=== PATIENT | male | born 1945 | race Hispanic/Latino ===

== ENCOUNTER → 2021-12-04 | Day surgery (SDC) | payer MEDICARE, OTHER ==
[2021-12-02 09:41] LABS: BASOPHILS % 0.5 % (0.0-1.0); EOSINOPHILS # (AUTO) 0.3 (0.0-0.4); EOSINOPHILS % 3.5 % (0.0-6.0); HEMATOCRIT 40.2 % (38.2-49.6); HEMOGLOBIN 12.6 g/dL (14.0-18.0); INR 0.95; LYMPHOCYTES # (AUTO) 1.5 (1.0-3.2); LYMPHOCYTES % 19.9 % (18.0-39.1); MEAN CORPUSCULAR HEMOGLOBIN 28.2 pg (28-32); MEAN CORPUSCULAR HGB CONC 31.3 g/dL (31-35); MEAN CORPUSCULAR VOLUME 89.9 fL (81-99); MONOCYTES # (AUTO) 0.6 (0.2-0.8); MONOCYTES % 7.9 % (4.4-11.3); NEUTROPHILS # (AUTO) 5.1 (2.1-6.9); NEUTROPHILS % 67.7 % (38.7-80.0); PLATELET COUNT 239 x10e3/uL (140-360); PROTHROMBIN TIME 13.5 seconds (11.9-14.5); RED BLOOD COUNT 4.47 x10e6/uL (4.3-5.7)
[2021-12-02 09:42] LABS: PARTIAL THROMBOPLASTIN TIME 30.2 seconds (23.8-35.5)
[2021-12-02 09:48] LABS: ALBUMIN 3.5 g/dL (3.5-5.0); ALBUMIN/GLOBULIN RATIO 0.8 (0.8-2.0); ANION GAP 15.2 mmol/L (8-16); CALCIUM 9.3 mg/dL (8.4-10.2); CHOL/HDL RATIO 4.2 (3.9-4.7); CREATININE, SERUM 1.54 mg/dL (0.72-1.25); POTASSIUM 4.2 mmol/L (3.5-5.1)
[2021-12-04] VITALS (19 sets, daily range): BP systolic 116–165; BP diastolic 64–86
[~2021-12-04] VITALS: Ht 165.1 cm; Wt 97.1 kg
[~2021-12-04] MED LIST: ASPIRIN 325 MG TAB ONE; ASPIRIN CHEW81 MG PO; BYSTOLIC10 MG PO; CLOPIDOGREL BISULFATE 75 MG TAB ONE; CLOPIDOGREL75 MG PO; DIOVAN160 MG PO; FENTANYL CITRATE/PF 100MCG/2 ML INJ ONE; GLIMEPIRIDE4 MG; HEPARIN SOD (PORCINE) 1000 UNIT/ML 30ML ONE; HEPARIN SOD/SOD CHLORIDE 2,000 ML ONE; HYDROCHLOROTHIA50 MG; IOPAMIDOL 300MG/ML 100 ML INFUS..BTL IV ONE; LIDOCAINE HCL 1% LOCAL INJ 20 ML VIAL ONE; LUMIGAN2.5 M1 OP; METFORMIN HCL500 M2 PO; MIDAZOLAM HCL 2 MG/2 ML VIAL ONE; NITROGLYCERIN/D5W 200 MCG/ML 250 ML ONE; SIMVASTATIN40 MG PO; SODIUM CHLORIDE 0.9% 1000ML 1,000 ML ONE; VERAPAMIL HCL 2.5 MG/ML 2 ML VIAL ONE
== END | disposition home or self-care (01) ==
LOC: CATH LAB 07:29
PROVIDERS: ATTEND Internal Medicine Cardiovascular Disease
DX: I70.213 Atherosclerosis of native arteries of extremities with intermittent claudication, bilateral legs (principal); I25.119 Atherosclerotic heart disease of native coronary artery with unspecified angina pectoris; I35.0 Nonrheumatic aortic (valve) stenosis; I11.0 Hypertensive heart disease with heart failure; I50.32 Chronic diastolic (congestive) heart failure; E78.2 Mixed hyperlipidemia; R60.0 Localized edema; E11.9 Type 2 diabetes mellitus without complications; Z71.89 Other specified counseling; Z71.3 Dietary counseling and surveillance; Z01.812 Encounter for preprocedural laboratory examination; Z20.822 Contact with and (suspected) exposure to COVID-19; Z79.82 Long term (current) use of aspirin; Z79.84 Long term (current) use of oral hypoglycemic drugs; Z79.899 Other long term (current) drug therapy; Z68.33 Body mass index [BMI] 33.0-33.9, adult
CPT/HCPCS: 36415; 37225; 76937; 80053; 80061; 85025; 85610; 85730; 92978; 93458; C1724; C1725; C1753; C1760; C1769 ×3; C1887; C2623; J1644; J2001; J2250; J3010; J7030; Q9967; U0002; 36247; 37224; 75630; 99152; 99153